=== PATIENT | male | born 1935 | race Caucasian/White ===

== ENCOUNTER 2018-12-09 14:06 | Outpatient (CLI) | payer MEDICARE ==
--- NOTE | 2018-12-09 16:45 | RAD ---
SACRUM AND COCCYX 3 VIEWS: Date; 12/09/18 HISTORY: Coccygeal pain. FINDINGS: Bilateral hip prostheses partially visualized on this exam. The bones are diffusely demineralized. Ma rked degenerative disc narrowing is seen at L5-S1. SI joints appear symmetric. I do not see any defin ite sacral or coccygeal fracture. IMPRESSION: No acute changes. POS: TPC
== END 2018-12-09 14:07 | disposition home or self-care (01) ==
LOC: RAD 14:06
PROVIDERS: ATTEND Nurse Practitioner Family
DX: M53.3 Sacrococcygeal disorders, not elsewhere classified (principal)
CPT/HCPCS: 72220

== ENCOUNTER 2019-09-05 10:41 | Outpatient (CLI) | payer MEDICARE ==
--- NOTE | 2019-09-05 13:41 | MRI ---
MRI LUMBAR SPINE WITHOUT CONTRAST: INDICATION: An 84-year-old male with intervertebral disk disorder and low back pain with right-sided radiculopath y. COMPARISON: Prior lumbar spine dated 04/14/2009. FINDINGS: L4 burst fracture appears unchanged from the comparison. The retropulsed bone fragments at the L4 le gayathri induce stable mild central canal narrowing. Conus is seen to terminate at approximately L1. Vis ualized aspects of the retroperitoneum and paravertebral soft tissues appear within normal limits. T here is advanced Modic end plate degenerative change seen at L2-3 which has developed in the interim. There is some heterogeneous marrow signal element likely related to some red marrow hyperplasia wit h scattered fatty marrow retained within the lumbosacral spine. At L5-S1, there is a stable asymmetric to the left broad-based disk-osteophyte complex with facet hyp ertrophy inducing stable severe left lateral recess narrowing with potential for impingement of the t raversing left S1 nerve root. The loss of disk space height in addition to the facet hypertrophy ind uces mild right and severe left neural foraminal narrowing which is stable. At L4-5, there is a stable broad-based bulge with facet hypertrophy inducing stable mild central felipe l narrowing with mild right neural foraminal narrowing. At L3-4, there is a broad-based disk-osteophyte complex with facet hypertrophy inducing mild central canal narrowing. This is stable to the prior exam. No neural foraminal narrowing is evident. At L2-3, there has been interval development of a broad-based disk-osteophyte complex with ligamentum flavum hypertrophy and facet hypertrophy inducing severe central canal narrowing. There is severe r ight and mild left neural foraminal narrowing. This is all new from the prior exam. At L1-L2, there is a broad-based bulge without appreciable central canal or neural foraminal narrowin g. At T12-L1, there is no appreciable central canal or neural foraminal narrowing. IMPRESSION: 1, Interval development of severe central canal narrowing at L2-3 due to a broad-based disk-osteophy te complex, ligamentum flavum hypertrophy, and facet hypertrophy. There is also severe right and mil d left neural foraminal narrowing which is also new from the prior exam. Mild central canal narrowin g is seen at L3-4, L4, and L4-5 and is stable. 2. Severe left lateral recess narrowing at L5-S1 with potential impingement of traversing left L1 ne rve root is stable-appearing. Severe left neural foraminal narrowing at L5-S1 is stable. POS: OFF
== END 2019-09-05 10:42 | disposition home or self-care (01) ==
LOC: BICMRI 10:41
PROVIDERS: ATTEND Specialist
DX: M51.16 Intervertebral disc disorders with radiculopathy, lumbar region (principal); M48.061 Spinal stenosis, lumbar region without neurogenic claudication; M48.07 Spinal stenosis, lumbosacral region
CPT/HCPCS: 72148

== ENCOUNTER 2019-10-04 09:17 | Emergency (ER) | payer MEDICARE ==
[2019-10-04 10:24] LABS: Bilirubin Negative (Negative); Blood, Urine Negative (Negative); Clarity Clear (Clear); Glucose, Urine (Dipstick) Normal (Negative); Leukocyte Negative Leu/uL (Negative); Nitrite Negative (Negative); Protein, Urine (Dipstick) Negative (Neg-Trace); Urobilinogen Normal mg/dL (Less than 2)
--- NOTE | 2019-10-04 10:30 | RAD ---
EXAM: Two views chest PROVIDED CLINICAL HISTORY: Back pain COMPARISON: None FINDINGS: Cardiac and mediastinal silhouette appears within normal limits. Lungs appear free of significant opa city. Blunting of the left posterior and lateral costophrenic angle suggests small amount of left pleural fluid. No evidence for pneumothorax. The bony thorax appears grossly intact. Degenerative shefali nges involve the thoracic spine. IMPRESSION: Possible small left pleural effusion.
--- NOTE | 2019-10-04 10:31 | RAD ---
EXAM: XR Thoracic Spine 2 View PROVIDED CLINICAL HISTORY: Back pain COMPARISON: None FINDINGS: Thoracic alignment appears normal. Multilevel thoracic disc degenerative changes are seen. Pedicles a ppear intact. Vertebral body heights appear preserved. IMPRESSION: No radiographic evidence for an acute osseous abnormality.
== END 2019-10-04 10:59 | disposition home or self-care (01) ==
LOC: ERS 09:17
DX: S30.0XXA Contusion of lower back and pelvis, initial encounter (principal); I10 Essential (primary) hypertension; M48.00 Spinal stenosis, site unspecified; X50.1XXA Overexertion from prolonged static or awkward postures, initial encounter
CPT/HCPCS: 71046; 72070; 81003

== ENCOUNTER 2019-10-05 09:18 | Emergency (ER) | payer MEDICARE | END 2019-10-05 10:45 | disposition home or self-care (01) | LOC: ERS 09:18 | DX: S30.0XXA Contusion of lower back and pelvis, initial encounter (principal); S20.212A Contusion of left front wall of thorax, initial encounter; I10 Essential (primary) hypertension; Z79.899 Other long term (current) drug therapy; W01.198A Fall on same level from slipping, tripping and stumbling with subsequent striking against other object, initial encounter | CPT/HCPCS: 99283 ==

== ENCOUNTER 2020-01-01 06:50 | Outpatient (CLI) | payer MEDICARE ==
[2020-01-01 12:23] LABS: Mean Corpuscular HGB CONC 34.9 g/dL (32.0-36.0); Mean Corpuscular Hemoglobin 35.7 pg (27.0-31.0); Mean Platelet Volume 8.2 fL (7.4-10.4); Platelet Count 196 thou/uL (130-400); RBC Distribution Width 11.8 % (11.5-14.5); Red Blood Cell (RBC) Count 4.21 mill/uL (4.70-6.10)
--- NOTE | 2020-01-01 12:23 | EKG ---
Test Reason : Blood Pressure : / mmHG Vent. Rate : 092 BPM Atrial Rate : 091 BPM P-R Int : 000 ms QRS Dur : 102 ms QT Int : 356 ms P-R-T Axes : 000 026 -29 degrees QTc Int : 440 ms Atrial fibrillation Minimal voltage criteria for LVH, may be normal variant Abnormal ECG When compared with ECG of 12-SEP-2011 11:46, Atrial fibrillation has replaced Sinus rhythm Borderline criteria for Inferior infarct are now Present T wave inversion now evident in Inferior leads Confirmed by TAMMIE UNDERWOOD, DR. Khan ([id number]) on 01/01/2020 12:22:32 PM Referred By: UMER Confirmed By:DR. Erin CHO MD
[2020-01-01 12:30] LABS: Prothrombin Time 12.8 SEC (12.0-14.7)
[2020-01-01 12:44] LABS: Anion Gap 10 mmol/L (10-20); BUN (Urea Nitrogen) 10 mg/dL (8.4-25.7); Calc. Creatinine Clearance 0 mL/min (70-130); Calcium 9.3 mg/dL (7.8-10.44); Carbon Dioxide 29 mmol/L (23-31); Chloride 98 mmol/L (98-107); Estimated GFR-MDRD 85; Glucose 122 mg/dL (83-110); Sodium 133 mmol/L (136-145)
== END 2020-01-01 06:51 | disposition home or self-care (01) ==
LOC: LABBT 06:50
PROVIDERS: ATTEND Surgery
DX: Z01.818 Encounter for other preprocedural examination (principal); M48.061 Spinal stenosis, lumbar region without neurogenic claudication; M54.16 Radiculopathy, lumbar region
CPT/HCPCS: 80048; 85027; 85610; 85730; 93005; 93010

== ENCOUNTER 2020-01-08 05:58 | Day surgery (SDC) | payer MEDICARE ==
[2020-01-01 10:20] VITALS: BMI 27.1
[2020-01-08] MEDS ORDERED: Thrombin 5000 UNITS/5 ML VIAL ONE (06:27)
[2020-01-08] MEDS ORDERED: Fentanyl 100 MCG/2 ML VIAL ONE ×4 (07:37→10:39)
[2020-01-08] MEDS ORDERED: Morphine Sulfate 2 MG/ML SYRINGE SLOW IVP PRN (09:21)
[2020-01-08] MEDS ORDERED: PACU-Morphine 4MG/ML VIAL SLOW IVP PRN (09:21)
[2020-01-08] MEDS ORDERED: Ondansetron HCl/PF 4 MG/2 ML Vial IVP PRN (09:21)
[2020-01-08] MEDS ORDERED: Promethazine HCl 25 MG/ML VIAL SLOW IVP PRN (09:21)
[2020-01-08] MEDS ORDERED: HYDROmorphone 2 MG/ML VIAL SLOW IVP PRN (09:21)
[2020-01-08] MEDS ORDERED: Promethazine HCl 25 MG/ML VIAL IM PRN (09:21)
[2020-01-08] MEDS ORDERED: Ketorolac Tromethamine 30 MG/ML VIAL ONE (09:34)
[2020-01-08] MEDS ORDERED: Rocuronium Bromide 10 MG/ML (10ML VIAL) ONE (09:34)
[2020-01-08] MEDS ORDERED: Lidocaine 1% PF 5 ML VIAL ONE (09:34)
[2020-01-08] MEDS ORDERED: Ondansetron PF 4 MG/2 ML Vial ONE (09:34)
[2020-01-08] MEDS ORDERED: Glycopyrrolate 0.2 MG/ML 5 ML SYRINGE ONE (09:34)
[2020-01-08] MEDS ORDERED: PROPOFOL 200 MG/20 ML VIAL ONE (09:34)
[2020-01-08] MEDS ORDERED: Dexamethasone 20 MG/5 ML VIAL ONE (09:34)
[2020-01-08] MEDS ORDERED: hydrALAZINE 20 MG/ML VIAL ONE (09:40)
[2020-01-08] MEDS ORDERED: traMADol HCl 50 MG TAB PO PRN (10:02)
[2020-01-08] MEDS ORDERED: Mag-Al 1200 mg/1200 mg/30 ML UDCUP PO PRN (10:02)
[2020-01-08] MEDS ORDERED: Milk Of Magnesia 30 ML UDCUP PO PRN (10:02)
[2020-01-08] MEDS ORDERED: Acetaminophen/Codeine 30-300mg Tablet PO PRN (10:02)
[2020-01-08] MEDS ORDERED: Acetaminophen 325 MG TAB PO PRN (10:02)
[2020-01-08] MEDS ORDERED: tiZANidine HCl 4 MG TAB PO PRN (10:02)
[2020-01-08] MEDS ORDERED: Morphine 2 MG/ML SYRINGE SLOW IVP PRN (10:02)
[2020-01-08] MEDS ORDERED: Ondansetron PF 4 MG/2 ML Vial IVP PRN (10:02)
[2020-01-08] MEDS ORDERED: Fleet Enema 133 ML BOT PR PRN (10:02)
[2020-01-08] MEDS ORDERED: Bisacodyl 10 MG SUPP PR PRN (10:02)
[2020-01-08] MEDS: HYDROcodone/Acetaminophen 7.5/325 mg Tablet PO PRN ×2 (13:53→18:45)
--- NOTE | 2020-01-08 13:53 | OP ---
DATE OF PROCEDURE: 01/08/2020 LOCATION: OR 11. CRIME ANALYST: Marta Vasquez PA-C PREPROCEDURE DIAGNOSIS: Lumbar stenosis with low back and leg pain with muscle weakness and repeated falls during ambulation. POSTPROCEDURE DIAGNOSIS: Lumbar stenosis with low back and leg pain with muscle weakness and repeated falls during ambulation. PROCEDURE PERFORMED: L2-L3 laminectomy, partial facetectomy, and foraminotomies. DESCRIPTION OF PROCEDURE: After informed consent was obtained from the patient, the patient was brought to the OR. Proper patient, pause, and identification were carried out. He was placed under excellent general endotracheal anesthesia and positioned prone on the OR table. All appropriate points were padded. We identified the L2-L3 segment. This region was sterilely cleansed, prepared, and draped after linear otoniel was made. This area was again sterilely cleansed, prepared, and draped. Proper patient, pause, and identification were carried out. The wound was then opened with a combination of sharp, monopolar, and blunt dissection. L2-L3 segment exposed. Localization film confirmed our area of interest and performed the L2-L3 laminectomy, partial facetectomy, and foraminotomies with excellent decompression of common dural tube and nerve roots. There was no spinal fluid leak, although there was a partial-thickness opening in the dura where it was thinned and arachnoid was visible, but again no spinal fluid leak. Copious irrigation occurred throughout as did maximizing hemostasis. The wound was then closed in anatomic layers following sprinkling of vancomycin powder. The patient then emerged from anesthesia. Job ID: [id number]
[2020-01-08] MEDS: CEFAZOLIN 2 GM in Premix Bag 1 BAG IVPB SCH ×2 (14:56→22:47)
[2020-01-08] MEDS: Sodium Chloride 0.9% 1,000 ML IV SCH (14:56)
--- NOTE | 2020-01-08 20:59 | EKG ---
Test Reason : PREOP/AFIB COMFORMAT Blood Pressure : / mmHG Vent. Rate : 068 BPM Atrial Rate : 068 BPM P-R Int : 190 ms QRS Dur : 100 ms QT Int : 394 ms P-R-T Axes : 081 020 033 degrees QTc Int : 418 ms Normal sinus rhythm Normal ECG When compared with ECG of 01-JAN-2020 10:53, Sinus rhythm has replaced Atrial fibrillation Borderline criteria for Inferior infarct are no longer Present T wave inversion no longer evident in Inferior leads Confirmed by Ruben ALVAREZ ([id number]) on 01/08/2020 8:59:28 PM Referred By: UMER Confirmed By:Ruben ALVAREZ
[2020-01-09] MEDS: Sodium Chloride 0.9% 1,000 ML IV SCH ×2 (00:03→14:03)
[2020-01-09] MEDS: Hydrochlorothiazide 25 MG TAB PO SCH ×2 (07:37→07:38)
[2020-01-09] MEDS ORDERED: Non-Formulary Item 1 EACH (Omeprazole [Omeprazole] 20 MG) PO SCH (09:00)
[2020-01-09] MEDS ORDERED: Tamsulosin HCl 0.4 MG CAP PO SCH (09:00)
[2020-01-09] MEDS ORDERED: Non-Formulary Item 1 EACH (Cetirizine Hcl [Zyrtec] 10 MG) PO SCH (09:00)
[2020-01-09] MEDS ORDERED: Ramipril 5 MG CAP PO SCH (09:00)
[2020-01-09] MEDS ORDERED: Non-Formulary Item 1 EACH (Ramipril [Ramipril] 20 MG) PO SCH (09:00)
[2020-01-09] MEDS ORDERED: Hydrochlorothiazide 25 MG TAB PO SCH (09:00)
[2020-01-09] MEDS ORDERED: Loratadine 10 MG TAB PO SCH (09:00)
[2020-01-09 16:11] VITALS: BP 153/74; TEMP 98.7
--- NOTE | 2020-01-09 22:48 | DIS ---
DATE OF ADMISSION: 01/08/2020 DATE OF DISCHARGE: 01/09/2020 ADMISSION DIAGNOSES: Lumbar stenosis with myelopathy. DISCHARGE DIAGNOSES: 1. Lumbar stenosis with myelopathy. 2. Postoperative urinary retention. HOSPITAL COURSE: Mr. Flores is underwent L2-L3 laminectomy on 01/08/2020. He reports doing well postoperatively and states his leg symptoms are improved. Low back pain controlled with pain medications. He has good movement and strength in his legs. He has been ambulatory over 200 feet today. He denies any difficulty with walking or balance. He expresses that he would like to be discharged home. Unfortunately, he did experience some post-op urinary retention and required multiple in/out catheterizations due to high post-void residual volume on bladder scans. Thus, he will be discharged home with an indwelling Lopez catheter and will follow up in 1 week with his urologist for removal. PLAN: The patient will be discharged home today. Follow up with Urology in 1 week. He was provided with appropriate pain medications. Discussed postoperative restrictions and wound care. We will arrange for appropriate followup in our clinic for postoperative re-evaluation in the upcoming weeks. The patient will call our office sooner with any questions or concerns. Job ID: [id number] MTDD
== END 2020-01-09 17:59 | disposition home or self-care (01) ==
LOC: SDC 05:58 → SURG A 10:08 → SDC 01-09 17:59
PROVIDERS: ATTEND Surgery
PROC: 01NB0ZZ Release Lumbar Nerve, Open Approach (ICD-10-PCS; principal; 2020-01-08)
DX: M48.061 Spinal stenosis, lumbar region without neurogenic claudication (principal); G95.89 Other specified diseases of spinal cord; R33.8 Other retention of urine; M54.16 Radiculopathy, lumbar region; Z79.899 Other long term (current) drug therapy
CPT/HCPCS: 76000; 93005; 93010; J0360; J0690; J1100; J1885; J2001; J2405; J2704; J3010; J3370; J3490

== ENCOUNTER 2020-02-19 05:54 | Outpatient (CLI) | payer MEDICARE, OTHER ==
[2020-02-19 15:48] LABS: Mean Corpuscular HGB CONC 33.6 g/dL (32.0-36.0); Mean Corpuscular Hemoglobin 34.6 pg (27.0-31.0); Platelet Count 282 thou/uL (130-400); RBC Distribution Width 12.3 % (11.5-14.5); Red Blood Cell (RBC) Count 4.03 mill/uL (4.70-6.10); White Blood Cell (WBC) Count 6.2 thou/uL (4.8-10.8)
[2020-02-19 16:07] LABS: Anion Gap 10 mmol/L (10-20); BUN (Urea Nitrogen) 10 mg/dL (8.4-25.7); Calc. Creatinine Clearance 0 mL/min (70-130); Calcium 9.3 mg/dL (7.8-10.44); Carbon Dioxide 31 mmol/L (23-31); Chloride 97 mmol/L (98-107); Estimated GFR-MDRD 84; Glucose 134 mg/dL (83-110); Potassium 3.7 mmol/L (3.5-5.1); Sodium 134 mmol/L (136-145)
[2020-02-19 16:08] LABS: INR-International Normal Ratio 0.9; PTT 25.6 SEC (22.9-36.1); Prothrombin Time 12.1 sec (12.0-14.7)
[2020-02-20 11:41] LABS: SARS-CoV-2 MS2 Positive; SARS-CoV-2 N Gene Negative; SARS-CoV-2 S Gene Negative; SARS-CoV-2 orf1ab Negative
== END 2020-02-19 05:55 | disposition home or self-care (01) ==
LOC: LABBT 05:54
PROVIDERS: ATTEND Urology
DX: Z01.812 Encounter for preprocedural laboratory examination (principal); Z11.59 Encounter for screening for other viral diseases; N32.0 Bladder-neck obstruction; R33.9 Retention of urine, unspecified
CPT/HCPCS: 80048; 85027; 85610; 85730; U0002; 87635; U0003

== ENCOUNTER 2020-02-23 06:05 | Inpatient (IN) | payer MEDICARE ==
[2020-02-19 13:13] VITALS: BMI 27.1
[2020-02-23] MEDS ORDERED: Fentanyl 100 MCG/2 ML VIAL ONE ×2 (06:32→09:51)
[2020-02-23] MEDS ORDERED: cefTRIAXone\\ROCEPHIN 2 GM VIAL ONE (06:45)
[2020-02-23] MEDS ORDERED: Vancomycin 1 GM/200 ML BAG ONE (06:45)
[2020-02-23] MEDS ORDERED: Sodium Chloride 0.9% 100 ML ONE (06:46)
[2020-02-23] MEDS ORDERED: Acetaminophen 500 MG TAB PO PRN (07:41)
[2020-02-23] MEDS ORDERED: B & O ONE (08:55)
[2020-02-23] MEDS ORDERED: Acetaminophen/Codeine 30-300mg Tablet PO PRN ×2 (10:09)
[2020-02-23] MEDS ORDERED: [UNRECOGNIZED DRUG - REMARK] FS SCH (10:15)
--- NOTE | 2020-02-23 10:43 | OP ---
DATE OF PROCEDURE: 02/23/2020 PREOPERATIVE DIAGNOSES: Urinary retention, bladder outlet obstruction. POSTOPERATIVE DIAGNOSES: Urinary retention, bladder outlet obstruction. PROCEDURE PERFORMED: Cystoscopy with transurethral resection of the prostate. ANESTHESIA: General. ESTIMATED BLOOD LOSS: 250 mL estimated. DRAINS: A 22-Algerian Lopez three-way with 60 mL in the balloon, hooked up to continuous bladder irrigation. He also received a 60 mg B and O suppositories end of the case. FINDINGS: There is no evidence of stricture disease. He does have some hypospadias. He had large trilobar BPH, some bladder cellules/small tics and trabeculation to ureteral orifices. DESCRIPTION OF PROCEDURE: Obtained written and verbal consent from the patient. After receiving IV antibiotics, he was taken to the operating suite. He was placed in a supine position on the treatment table. PlexiPulses were placed in his lower extremities and turned on. He was given a general anesthetic and oral obturator intubation. He was placed in the dorsal lithotomy position. His Lopez catheter was removed, and he was sterilely prepped and draped for the above procedure. Cystoscopy was performed with a 22-Algerian sheath. This was well lubricated and passed through the foreshortened urethra secondary to hypospadias through the prostatic urethra into the bladder. The bladder was filled and emptied number of times and examined with both the 30 and the 70-degree lens. The 24-Algerian resectoscope sheath with Michael obturator was then passed with a 30-degree lens and video camera and monitor through the male urethra into the bladder. An Sanchez resectoscope with 30-degree lens video camera and monitor and the Gyrus prostate loop were used, our landmarks including the trigone ureteral orifices, bladder neck, and verumontanum were identified. The floor was taken down including the median lobe from 7 o'clock to 5 o'clock to just proximal to the verumontanum. Left lobe was taken down from noon to 5, and then, the right lobe from noon to 7. Apical tissue was resected bites. We Ellik'd out 2 to 3 different times during the procedure just to help visibility. Hemostasis was obtained with electrocautery unit. Once the procedure was terminated, we obtained good hemostasis with electrocautery unit. Re-examined the bladder, there was no evidence of remaining chips or clots. Trigone and the ureteral orifices all appeared fine. Instruments were removed. Catheter was placed with aid of a catheter guide, 60 mL put in the balloon, that was hand irrigated, it remained clear. B and O suppository was placed. He was taken out of the dorsal lithotomy position, hooked up to CBI at a slow rate, he was clear. His Lopez was placed on gentle traction on his right thigh with a Velcro leg strap. He was awakened and extubated and taken by paz to the recovery room. Job ID: [id number]
[2020-02-23] MEDS ORDERED: Rocuronium Bromide 10 MG/ML (10ML VIAL) ONE (10:51)
[2020-02-23] MEDS ORDERED: Lidocaine 1% PF 5 ML VIAL ONE (10:51)
[2020-02-23] MEDS ORDERED: Ondansetron PF 4 MG/2 ML Vial ONE (10:51)
[2020-02-23] MEDS ORDERED: Glycopyrrolate 0.2 MG/ML 5 ML SYRINGE ONE (10:51)
[2020-02-23] MEDS ORDERED: PROPOFOL 200 MG/20 ML VIAL ONE (10:51)
[2020-02-23] MEDS: Ramipril 5 MG CAP PO SCH (12:27)
[2020-02-23] MEDS: Docusate 100 MG CAP PO SCH ×2 (12:27→20:50)
[2020-02-23] MEDS: Loratadine 10 MG TAB PO SCH (12:27)
[2020-02-23] MEDS: Hydrochlorothiazide 25 MG TAB PO SCH (12:27)
--- NOTE | 2020-02-23 14:18 | PRG ---
DATE OF SERVICE: 02/23/2020 This is a postop check. Mr. Flores is up on the surgical floor, in room #3303, after surgery earlier today, is going to stay at bedrest. Today, he is feeling comfortable, minimal discomfort. His urine is clear on a very slow CBI. He is tolerating a diet. Discussed with him that we will keep him at bedrest tonight and that he can get up tomorrow, his IV can be hep-locked whenever he is taking good p.o. His vital signs are stable. Job ID: [id number]
[2020-02-23] MEDS: D5 1/2 NS w/20 mEq KCL 1,000 ML IV SCH ×2 (14:57→20:51)
[2020-02-24] MEDS: cefTRIAXone\\ROCEPHIN 1 GM in Sodium Chloride 0.9% 100 ML IVPB SCH (06:02)
[2020-02-24] MEDS: Loratadine 10 MG TAB PO SCH (09:23)
[2020-02-24] MEDS: Hydrochlorothiazide 25 MG TAB PO SCH (09:23)
[2020-02-24] MEDS: Docusate 100 MG CAP PO SCH ×4 (09:23→19:56)
[2020-02-24] MEDS: Ramipril 5 MG CAP PO SCH (09:24)
--- NOTE | 2020-02-24 18:11 | PRG ---
DATE OF SERVICE: 02/24/2020 This is postop day #1, afebrile with stable vital signs, good urine output. His urine was bloody slightly this morning on a slow CBI, so we kept him get up in a chair and out of bed. His urine is much clearer now. He has had no shortness of breath. No chest pain. He is tolerating a diet. His abdomen is soft and nontender. Traction on the Lopez was released. His calves are nontender. We are going to stop his CBI and will take his catheter out tomorrow at 5 in the morning . Job ID: [id number]
[2020-02-25] MEDS: cefTRIAXone\\ROCEPHIN 1 GM in Sodium Chloride 0.9% 100 ML IVPB SCH (06:23)
[2020-02-25] MEDS: Docusate 100 MG CAP PO SCH (08:03)
[2020-02-25] MEDS: Loratadine 10 MG TAB PO SCH (08:03)
[2020-02-25] MEDS: Ramipril 5 MG CAP PO SCH (08:04)
[2020-02-25] MEDS: Hydrochlorothiazide 25 MG TAB PO SCH (08:04)
--- NOTE | 2020-02-25 11:23 | PRG ---
DATE OF SERVICE: 02/25/2020 He is postop day 2. His vital signs are stable. He is afebrile. He had his Lopez removed this morning. He has voided a couple of times, it was bloody. It looks like on his measuring that was probably about 100 mL and he has voided just very little, clear urine though since then. Does not feel distended or full. He is drinking plenty of fluids. No shortness of breath. He cannot go home until he is voiding adequately or until we replace his Lopez. I talked with him about this, so we will keep him here for a little bit longer today. Hopefully, he will go decent amount in the next couple of hours. This was discussed with him. His discharge is currently pending. Job ID: [id number]
[2020-02-25 11:36] VITALS: BP 151/67; TEMP 97.4
== END 2020-02-25 14:40 | disposition home or self-care (01) | DRG 713 ==
LOC: SDC 06:05 → SURG A 10:55
PROVIDERS: ADMIT Urology; ATTEND Urology
PROC: 0VB08ZZ Excision of Prostate, Via Natural or Artificial Opening Endoscopic (ICD-10-PCS; principal; 2020-02-23)
DX: N40.1 Benign prostatic hyperplasia with lower urinary tract symptoms (principal); N13.8 Other obstructive and reflux uropathy; R33.8 Other retention of urine; Z11.59 Encounter for screening for other viral diseases; Q54.9 Hypospadias, unspecified; I10 Essential (primary) hypertension; J30.2 Other seasonal allergic rhinitis; M19.90 Unspecified osteoarthritis, unspecified site; Z79.899 Other long term (current) drug therapy
CPT/HCPCS: 88305; J0696; J2001; J2405; J2704; J3010; J3370; J3480; J3490